=== PATIENT | male | born 1980 | race Caucasian/White ===

== ENCOUNTER 2023-10-18 15:12 | Emergency (ER) | payer SELFPAY ==
[2023-10-18] MEDS: Ondansetron 4 MG Tab.DIS PO ONE (16:08)
[2023-10-18] MEDS: Ondansetron 4 MG/2 ML SDV IVPUSH ONE (16:09)
[2023-10-18] MEDS: Sodium Chloride 0.9% 1,000 ML IV ONE (16:09)
== END 2023-10-18 16:57 | disposition home or self-care (01) ==
LOC: MW.ED 15:12
DX: R11.2 Nausea with vomiting, unspecified (principal); Z75.8 Other problems related to medical facilities and other health care
CPT/HCPCS: 99284; A9270

== ENCOUNTER 2023-10-30 12:16 | Emergency (ER) | payer SELFPAY | END 2023-10-30 13:14 | disposition home or self-care (01) | LOC: MW.ED 12:16 | DX: H10.9 Unspecified conjunctivitis (principal); Z79.899 Other long term (current) drug therapy; Z75.8 Other problems related to medical facilities and other health care | CPT/HCPCS: 99282 ==